=== PATIENT | male | born 1960 | race Caucasian/White ===

== ENCOUNTER → 2020-03-17 08:47 | Outpatient (CLI) | payer OTHER, SELFPAY ==
--- NOTE | 2020-03-17 | DI.CT.S_ITS ---
PROCEDURE: CT ABDOMEN PELVIS WO/W CON INDICATIONS: Unspecified abdominal pain TECHNIQUE: After the administration of oral contrast, 5 mm thick sections acquired from the diaphragms to the iliac crests. After the administration of intravenous contrast, 5 mm thick sections acquired from the diaphragms to the symphysis. 5 mm thick coronal and sagittal reformats were acquired. For radiation dose reduction, the following was used: automated exposure control, adjustment of mA and/or kV according to patient size. COMPARISON: None. FINDINGS: Image quality: Excellent. ABDOMEN: Lung bases: Lung bases are clear. Heart size is normal. Solid organs: Liver is normal in size and enhancement. Gallbladder negative. Biliary system is non-dilated. A cystic lesion involving the tail of pancreas measuring 1.8 x 1.7 cm, possibly slight multiloculated appearance. No definite pancreatic ductal dilatation. Spleen is normal in size and enhancement. No adrenal nodules. Both kidneys are normal in size. No hydronephrosis or nephrolithiasis. Presumed subcentimeter right-sided renal cyst although too small to characterize accurately Bowel and peritoneum: Stomach, small and large bowel loops are normal in caliber and wall thickness. No free fluid or air. There is mobile cecum which is seen in the right upper quadrant without pathologic dilatation. Appendix is not clearly identified however no suspicious pericecal inflammatory changes are seen. Nodes and vessels: No retroperitoneal or mesenteric adenopathy by size criteria. Aorta and inferior vena are normal in caliber. Miscellaneous: No ventral hernias. PELVIS: Genitourinary: The bladder is partially collapsed although there is possible circumferential wall thickening. Miscellaneous: No inguinal hernias or adenopathy. Bones: No suspicious bony lesions. Severe bilateral hip joint degeneration. Multilevel spondylitic changes and facet arthropathy No vertebral body compression fractures. IMPRESSION: Overall, no definite acute abnormality seen Incidentally noted cystic lesion involving the tail of the pancreas. In the absence of any prior studies cannot exclude cystic neoplasm. Recommend further evaluation with dedicated pancreas protocol MRI to better delineate the relationship with the main pancreatic duct. Additional chronic and incidental findings as above. Dictated by: Fritz Marquez M.D. on 03/17/2020 at 10:31 Approved by: Fritz Marquez M.D. on 03/17/2020 at 10:50
== END ==
PROVIDERS: PCP Family Medicine; Referring Provider Family Medicine; Visit Provider Family Medicine
DX: R10.9 Unspecified abdominal pain (principal); K86.9 Disease of pancreas, unspecified; M16.0 Bilateral primary osteoarthritis of hip; M47.816 Spondylosis without myelopathy or radiculopathy, lumbar region
CPT/HCPCS: 74178; Q9967

== ENCOUNTER → 2020-04-09 08:54 | Outpatient (CLI) | payer OTHER, SELFPAY ==
--- NOTE | 2020-04-09 | DI.MRI.S_ITS ---
PROCEDURE: MR ABDOMEN WO/W CON INDICATIONS: Cyst of pancreas TECHNIQUE: Coronal HASTE, axial 2D FLASH in- and [id number]; axial breath-hold T2 FSE with fat saturation from the hepatic dome to the iliac crests. Oblique coronal thin-slice and radial thick slab HASTE through the biliary system. Dynamic axial VIBE during administration of contrast. Post-contrast coronal VIBE or 2D FLASH with fat saturation from the hepatic dome to the iliac crests. Optional diffusion weighted imaging and ADC may be performed. COMPARISON: [facility], CT, CT ABDOMEN PELVIS WO/W CON, 03/17/2020, 9:08. FINDINGS: Image quality: Excellent. Pancreas and biliary system: No biliary distention or pancreatic ductal distention is seen. Note is made of a simple appearing cyst showing no abnormal internal or marginal enhancement measuring up to 1.9 x 1.3 cm at the pancreatic tail, unchanged from CT scanning that initially identified this structure 03/17/20. Solid organs: Liver is normal in size and enhancement. Gallbladder appears normal. Spleen is normal in size and enhancement. No adrenal nodules. Kidneys are normal in size and enhancement, without hydronephrosis. Nodes and vessels: No retroperitoneal or mesenteric adenopathy by size criteria. Aorta and inferior vena cava are normal in size. Bowel and peritoneum: Unenhanced bowel loops are normal in caliber throughout. No free fluid. Lung bases: No basal pleural effusions. Heart size is normal. Bones and soft tissues: No ventral hernias. Bone marrow is normal in overall signal. IMPRESSION: Isolated finding of a simple appearing cyst at the pancreatic tail measuring up to 1.3 x 1.9 cm, not clearly communicating with or enlarging the pancreatic duct. This structure may be visible utilizing ultrasound scanning, and if so followup by sequential ultrasound could be performed. It remains possible that this represents a small side branch intraductal papillary mucinous neoplasm and for this reason followup is necessary. It would be helpful if a prior cross-sectional imaging study exists that included this area for reference. If so, please obtain for our review. Dictated by: David Reynolds M.D. on 04/09/2020 at 11:36 Approved by: David Reynolds M.D. on 04/09/2020 at 12:02
== END ==
PROVIDERS: PCP Family Medicine; Referring Provider Family Medicine; Visit Provider Family Medicine
DX: K86.2 Cyst of pancreas (principal)
CPT/HCPCS: 74183; A9579

== ENCOUNTER 2020-08-03 15:02 | Emergency (ER) | payer OTHER, SELFPAY ==
[2020-08-03 15:07] VITALS: BP 160/93; PULSE 66; RESP 16; TEMP 37.1; O2SAT 99
[2020-08-03] MEDS: TET,DIPH,PERTUSS(ACELL),VAC/PF 0.5 ML SYRINGE IM (15:28)
--- NOTE | 2020-08-03 15:36 | ED_ITS ---
HPI - Animal Bite <GRISELDA Haines - Last Filed: 08/03/20 20:55> General Chief Complaint: Animal Bite Stated Complaint: EXPOSED TO A BAT Time Seen by Provider: 08/03/20 15:09 Source: patient Mode of arrival: Ambulatory History of Present Illness HPI narrative: 60yo male presents emergency department after an exposure to a bat approximately 48 hours ago. Patient states a bat fell from an umbrella, hit his right shoulder and briefly clung to his right arm for a few seconds. He brushed about of his arm and the back fell to the ground. Patient states ?the back was acting weird, it said on the back for few minutes with his mouth open and had difficulty flying off. Patient denies any known bite, breaks in the skin, or sustained scratches. He denies any symptoms such as fevers, chills, nausea, vomiting, diarrhea, chest pain, shortness of breath, or any other concerns. Unknown last Tdap. Related Data Home Medications Medication Instructions Recorded Confirmed amlodipine-benazepril 1 cap PO QAM 08/03/20 08/03/20 Previous Rx's Medication Instructions Recorded rabies vaccine, pcec (PF) 2.5 unit IM .Once #1 unit 08/03/20 [RabAvert (PF)] rabies vaccine, pcec (PF) 2.5 unit IM .once #1 unit 08/03/20 [RabAvert (PF)] rabies vaccine, pcec (PF) 2.5 unit IM .once #1 units 08/03/20 [RabAvert (PF)] Allergies Allergy/AdvReac Type Severity Reaction Status Date / Time No Known Drug Allergies Allergy Verified 08/03/20 16:15 Review of Systems <GRISELDA Haines - Last Filed: 08/03/20 20:55> Review of Systems Narrative: REVIEW OF SYSTEMS: GENERAL: Denies fever or chills. HENT: Denies head trauma. CARDIOVASCULAR: Denies syncope. MUSCULOSKELETAL: Denies weakness, or deformities. INTEGUMENTARY: Complains bat exposure, see HPI. NEURO: Denies numbness or tingling. Patient History <GRISELDA Haines - Last Filed: 08/03/20 20:55> Medical History No significant medical problems (Inactive) alcohol intake frequency: 0-2 drinks per day Exam <GRISELDA Haines - Last Filed: 08/03/20 20:55> Initial Vital Signs Initial Vital Signs: Vital Signs Temperature 98.7 F 08/03/20 15:07 Pulse Rate 66 08/03/20 15:07 Respiratory Rate 16 08/03/20 15:07 Blood Pressure 160/93 H 08/03/20 15:07 Pulse Oximetry 99 08/03/20 15:07 PHYSICAL EXAMINATION: GENERAL: Well groomed, alert, and cooperative. Answers questions promptly and appropriately. Vital signs noted. HENT: Normocephalic, atraumatic. RESPIRATORY: Normal respiratory rate, trachea midline, airway patent. No stridor, nasal flaring or accessory muscle use. MUSCULOSKELETAL: Normal gait and coordination. Equal tone and mass bilaterally. EXTREMITIES: CMS intact. Moves all extremities. SKIN: Warm, dry, soft, appropriate color for ethnicity. No scratches or lesions to right forearm. NEURO: Alert and Oriented X 3. Good coordination. PSYCH: Appropriate affect and mood. <Karrie Orourke DO - Last Filed: 08/12/20 07:56> Initial Vital Signs Initial Vital Signs: Vital Signs Temperature 98.7 F 08/03/20 15:07 Pulse Rate 66 08/03/20 15:07 Respiratory Rate 16 08/03/20 15:07 Blood Pressure 160/93 H 08/03/20 15:07 Pulse Oximetry 99 08/03/20 15:07 Course <GRISELDA Haines - Last Filed: 08/03/20 20:55> Course Course Narrative: 1530: Discussed with patient rabies protocol, states he would like rabies vaccination and Tdap. Patient is concerned he will have to travel to the ED for reviewed vaccination. Patient was encouraged to check with clinic on [address] to inquire if they could get the following rabies vaccinations in the clinic. Orders Ordered: Discontinued Medications Diphtheria/Tetanus/Acell Pertussis (Adacel) 0.5 ml IM .ONCE ONE Stop: 08/03/20 15:24 Last Admin: 08/03/20 15:28 Dose: 0.5 ml Documented by: MOMO Rabies Immune Globulin (Hyperrab) 1,588 unit 20 unit/kg (1588 unit) IM NOW ONE Stop: 08/03/20 15:37 Last Admin: 08/03/20 16:02 Dose: 1,588 unit Documented by: JOAQUIN Rabies Vaccine (Rabavert) 2.5 units IM .ONCE ONE Stop: 08/03/20 15:37 Last Admin: 08/03/20 15:56 Dose: 2.5 units Documented by: JOAQUIN Vital Signs Vital signs: Vital Signs - 8 hr 08/03/20 15:07 08/03/20 16:30 Temperature 98.7 F Pulse Rate 66 80 Respiratory Rate 16 14 Blood Pressure 160/93 H 148/79 H Pulse Oximetry 99 <Karrie Orourke DO - Last Filed: 08/12/20 07:56> Orders Ordered: Discontinued Medications Diphtheria/Tetanus/Acell Pertussis (Adacel) 0.5 ml IM .ONCE ONE Stop: 08/03/20 15:24 Last Admin: 08/03/20 15:28 Dose: 0.5 ml Documented by: MOMO Rabies Immune Globulin (Hyperrab) 1,588 unit 20 unit/kg (1588 unit) IM NOW ONE Stop: 08/03/20 15:37 Last Admin: 08/03/20 16:02 Dose: 1,588 unit Documented by: JOAQUIN Rabies Vaccine (Rabavert) 2.5 units IM .ONCE ONE Stop: 08/03/20 15:37 Last Admin: 08/03/20 15:56 Dose: 2.5 units Documented by: JOAQUIN Vital Signs Vital signs: Vital Signs - 8 hr 08/03/20 15:07 08/03/20 16:30 Temperature 98.7 F Pulse Rate 66 80 Respiratory Rate 16 14 Blood Pressure 160/93 H 148/79 H Pulse Oximetry 99 [facility] - Animal Bite <CindyGRISELDA Lechuga - Last Filed: 08/03/20 20:55> Medical Records Attestation: I reviewed the patient's medical records. Lab Data Attestation: I reviewed the patient's lab results. [facility] Narrative Medical decision making narrative: History and examination reveal a bed exposure with skin contact to an bat that was behaving abnormally, no physical evidence of trauma, denies any bites. However, Tdap was updated, rabies immunoglobulin and immunization were administered per patient request and recommendation of CDC. No concerns for infection to arm as no in cuts were visualized. Patient was given prescriptions for rabies vaccinations as he plans to receive these at Monday. Return precautions given for new or worsening symptoms. Patient agreed to plan of care and verbalized understanding. Discharge Plan Departure Patient Disposition: Home Clinical Impression: Exposure to bat without known bite Discharge Date/Time: 08/03/20 16:53 Instructions: DI for Rabies Vaccine Activity Restrictions/Additional Instructions: Thank you for entrusting me with your care today. As discussed, you have received a Tdap, rabies immunoglobulin, and rabies vaccine. Today's consider Day 0 of the vaccination schedule. You will need a repeat rabies vaccination on days 3 (Aug 06), 7 (Aug 10), and 14 (). I have given you prescriptions for the rabies vaccination see can take to Monday. Please confirm that they have this medication available. Return emergency department for any new or worsening symptoms. Prescriptions: New RabAvert (PF) 2.5 unit suspension for reconstitution 2.5 unit IM .once Qty: 1 RF: 0 RabAvert (PF) 2.5 unit suspension for reconstitution 2.5 unit IM .Once Qty: 1 RF: 0 RabAvert (PF) 2.5 unit suspension for reconstitution 2.5 unit IM .once Qty: 1 RF: 0 No Action amlodipine-benazepril 10-40 mg capsule 1 cap PO QAM RF: 0 Referrals: Harmeet Alcocer [Primary Care Provider] - <Karrie Orourke DO - Last Filed: 08/12/20 07:56> Cosign ED Attending Maricruzature Attestation: I was immediately available in the depa rtment for consultation. Documentation has been reviewed. I agree with assessment and plan.
[2020-08-03] MEDS: RABIES VACCINE (RABAVERT) 2.5 UNITS SYRINGE IM (15:56)
[2020-08-03] MEDS: RABIES IMMUNE GLOBULIN 300 UNIT/ML 5 ML VIAL 1588 UNIT IM (16:02)
[2020-08-03 16:30] VITALS: BP 148/79; PULSE 80; RESP 14
== END 2020-08-03 16:53 | disposition home or self-care (01) ==
PROVIDERS: Emergency Provider Nurse Practitioner; PCP Family Medicine
DX: Z20.9 Contact with and (suspected) exposure to unspecified communicable disease (principal); Z23 Encounter for immunization
CPT/HCPCS: 90375; 90471; 90675; 96372; 99283; 90715

== ENCOUNTER → 2020-12-31 09:07 | Outpatient (CLI) | payer OTHER, SELFPAY ==
--- NOTE | 2020-12-31 09:13 | DI.MRI.S_ITS ---
PROCEDURE: MR ABDOMEN WO/W CON INDICATIONS: Cyst of pancreas TECHNIQUE: Coronal HASTE, axial 2D FLASH in- and [id number]; axial breath-hold T2 FSE with fat saturation from the hepatic dome to the iliac crests. Oblique coronal thin-slice and radial thick slab HASTE through the biliary system. Dynamic axial VIBE during administration of contrast. Post-contrast coronal VIBE or 2D FLASH with fat saturation from the hepatic dome to the iliac crests. Optional diffusion weighted imaging and ADC may be performed. COMPARISON: [facility], MR, MR ABDOMEN WO/W CON, 04/09/2020, 9:13. FINDINGS: Image quality: Excellent. Pancreas and biliary system: The pancreas morphology is unchanged, and the cyst at the tail of the pancreas is also unchanged in size and morphology. This structure was initially identified on CT scanning 03/17/20 and the current dimensions of this cyst are 1.9 x 1.3 cm, with no internal septation or solid/enhancing nodularity. Solid organs: Liver is normal in size and enhancement. Gallbladder appears normal Spleen is normal in size and enhancement. No adrenal nodules. Kidneys are normal in size and enhancement, without hydronephrosis. Nodes and vessels: No retroperitoneal or mesenteric adenopathy by size criteria. Aorta and inferior vena cava are normal in size. Bowel and peritoneum: Unenhanced bowel loops are normal in caliber throughout. No free fluid. Lung bases: No basal pleural effusions. Heart size is normal. Bones and soft tissues: No ventral hernias. Bone marrow is normal in overall signal. IMPRESSION: Stable cystic structure at the pancreatic tail contiguous with the margin of the pancreatic duct, which is not dilated. This may represent a side branch papillary mucinous neoplasm, and in general a 10 year follow-up is recommended for such structures, which having established stability over time could be followed by MR scanning at 2 year intervals to complete 10 year surveillance from February of 2020. Dictated by: David Reynolds M.D. on 12/31/2020 at 13:59 Approved by: David Reynolds M.D. on 12/31/2020 at 14:07
== END ==
PROVIDERS: PCP Family Medicine; Referring Provider Family Medicine; Visit Provider Family Medicine
DX: K86.2 Cyst of pancreas (principal)
CPT/HCPCS: 74183

== ENCOUNTER → 2021-08-23 08:29 | Outpatient (CLI) | payer OTHER, SELFPAY ==
[2021-08-24 19:32] LABS: Cholesterol 209 mg/dL (140-199); HDL Cholesterol 64 mg/dL (40-60); LDL Cholesterol Calculated 129 mg/dL (<100); Triglycerides 81 mg/dL (35-150)
[2021-08-24 19:52] LABS: Add Manual Diff / Slide Review NO; Basophils Absolute Auto 0 /uL (0-100); Basophils Percent Auto 0.4 % (0-2); Eosinophils Absolute Auto 100 /uL (0-450); Eosinophils Percent Auto 3.2 % (2-4); Hematocrit 42.3 % (41-53); Lymphocytes Absolute Auto 1000 /uL (1100-4500); Lymphocytes Percent Auto 23.9 % (25-40); Mean Corpuscular HGB Conc 33.2 % (30-36); Mean Corpuscular Hemoglobin 31.1 PG (26-34); Mean Corpuscular Volume 93.8 fL (80-100); Monocytes Absolute Auto 400 /uL (0-900); Monocytes Percent Auto 9.4 % (3-14); Neutrophils Absolute Auto 2800 /uL (1500-7000); Neutrophils Percent Auto 63.1 % (50-75); Platelet Count 226 X10^3/uL (150-400); Red Blood Cell Count 4.51 X10^6/uL (4.5-5.9); White Blood Cell Count 4.4 X10^3/uL (4.5-11.0)
[2021-08-24 19:56] LABS: Hemoglobin A1C% w Est Avg Glu 5.2 % (4.0-6.0)
== END ==
PROVIDERS: PCP Family Medicine; Visit Provider Family Medicine
DX: D64.9 Anemia, unspecified (principal); E78.5 Hyperlipidemia, unspecified; I10 Essential (primary) hypertension
CPT/HCPCS: 80061; 83036; 85025

== ENCOUNTER → 2022-09-20 13:25 | Outpatient (CLI) | payer OTHER, SELFPAY ==
[2022-09-20 18:57] LABS: Add Manual Diff / Slide Review NO; Basophils Absolute Auto 0 /uL (0-100); Basophils Percent Auto 0.7 % (0-2); Eosinophils Absolute Auto 100 /uL (0-450); Eosinophils Percent Auto 1.4 % (2-4); Hematocrit 39.6 % (41-53); Hemoglobin 13.9 g/dL (13.5-17.5); Lymphocytes Absolute Auto 900 /uL (1100-4500); Lymphocytes Percent Auto 16.2 % (25-40); Mean Corpuscular HGB Conc 35.1 % (30-36); Mean Corpuscular Hemoglobin 31.5 PG (26-34); Mean Corpuscular Volume 89.6 fL (80-100); Monocytes Absolute Auto 500 /uL (0-900); Monocytes Percent Auto 8.5 % (3-14); Neutrophils Absolute Auto 4200 /uL (1500-7000); Neutrophils Percent Auto 73.2 % (50-75); Platelet Count 218 X10^3/uL (150-400); Red Blood Cell Count 4.42 X10^6/uL (4.5-5.9); Red Cell Distribution Width 12.4 % (11.6-14.8); White Blood Cell Count 5.7 X10^3/uL (4.5-11.0)
[2022-09-20 18:59] LABS: Alanine Aminotransferase 23 IU/L (<50); Albumin 4.3 g/dL (3.5-5.0); Albumin Globulin Ratio 1.6 (1.0-2.8); Alkaline Phosphatase 75 U/L (38-126); Aspartate Aminotransferase 26 IU/L (17-59); BUN Creatinine Ratio 14.5 (6-22); Bilirubin Total 0.4 mg/dL (0.2-1.3); Blood Urea Nitrogen 10 mg/dL (9-20); Carbon Dioxide 28 mmol/L (22-32); Chloride 98 mmol/L (98-107); Estimated Glomerular Filt Rate > 60 mL/min (>60); Globulin 2.7 g/dL (1.7-4.1); Glucose 94 mg/dL (80-110); HEMOLYSIS < 15 (0-50); Potassium 4.2 mmol/L (3.4-5.1); Sodium 134 mmol/L (137-145)
== END ==
PROVIDERS: PCP Physician Assistant; Visit Provider Physician Assistant
DX: Z12.5 Encounter for screening for malignant neoplasm of prostate (principal); I10 Essential (primary) hypertension; K86.2 Cyst of pancreas
CPT/HCPCS: 80053; 85025; G0103

== ENCOUNTER → 2022-11-08 12:59 | Outpatient (CLI) | payer OTHER, SELFPAY ==
[2022-11-08 20:20] LABS: HEMOLYSIS < 15 (0-50); Iron 171 ug/dL (49-181)
[2022-11-08 20:22] LABS: BUN Creatinine Ratio 14.1 (6-22); Blood Urea Nitrogen 10 mg/dL (9-20); Calcium 8.9 mg/dL (8.4-10.2); Carbon Dioxide 31 mmol/L (22-32); Chloride 87 mmol/L (98-107); Estimated Glomerular Filt Rate > 60 mL/min (>60); Glucose 103 mg/dL (80-110); HEMOLYSIS < 15 (0-50); Potassium 4.1 mmol/L (3.4-5.1); Sodium 128 mmol/L (137-145)
[2022-11-08 20:31] LABS: Percent Iron Saturation 36 % (20-50); Total Iron Binding Capacity 470 ug/dL (261-462); Transferrin 326 mg/dL (206-381)
[2022-11-08 21:10] LABS: Vitamin B12 315 pg/mL (239-931)
== END ==
PROVIDERS: PCP Physician Assistant; Visit Provider Family Medicine
DX: D64.9 Anemia, unspecified (principal); E78.5 Hyperlipidemia, unspecified; E87.1 Hypo-osmolality and hyponatremia; I10 Essential (primary) hypertension
CPT/HCPCS: 80048; 82607; 83540; 83550

== ENCOUNTER → 2022-12-01 13:03 | Outpatient (CLI) | payer OTHER, SELFPAY ==
[2022-12-02 08:22] LABS: BUN Creatinine Ratio 14.1 (6-22); Blood Urea Nitrogen 10 mg/dL (9-20); Calcium 8.8 mg/dL (8.4-10.2); Carbon Dioxide 29 mmol/L (22-32); Chloride 99 mmol/L (98-107); Estimated Glomerular Filt Rate > 60 mL/min (>60); Glucose 87 mg/dL (80-110); HEMOLYSIS < 15 (0-50); Potassium 4.4 mmol/L (3.4-5.1); Sodium 135 mmol/L (137-145)
[2022-12-02 09:59] LABS: Vitamin B12 507 pg/mL (239-931)
== END ==
PROVIDERS: PCP Family Medicine; Visit Provider Family Medicine
DX: D64.9 Anemia, unspecified (principal); E87.1 Hypo-osmolality and hyponatremia
CPT/HCPCS: 80048; 82607

== ENCOUNTER → 2023-01-08 09:13 | Outpatient (CLI) | payer OTHER, SELFPAY ==
--- NOTE | 2023-01-08 09:15 | DI.MRI.S_ITS ---
PROCEDURE: MR LUMBAR SPINE WO CON INDICATIONS: chronic LBP failed PT TECHNIQUE: Noncontrast sagittal T1 spin echo and T2 fast echo, sagittal STIR, and T2 fast spin echo through the lumbar spine. In cases with scoliosis, additional coronal T2 fast spin echo may be performed. COMPARISON: None. FINDINGS: Image quality: Excellent. Alignment and Curvature: There is normal bony alignment. Bone Marrow: Marrow is of normal overall signal. No acute vertebral body compression fractures. Spinal Cord: Conus medullaris terminates at the L2-L3 level. Visualized cord demonstrates normal signal and size. Paraspinous Soft Tissues: No paravertebral masses. T12-L1: Disc height loss. No canal stenosis or foraminal stenosis. L1-L2: Disc height loss. No canal stenosis or foraminal stenosis. L2-L3: Facet hypertrophy. No canal stenosis or foraminal stenosis. L3-L4: Disc bulge. Facet hypertrophy. Moderate canal stenosis. No significant foraminal stenosis. L4-L5: Disc bulge. Short pedicles. Prominent facet and ligament hypertrophy. Marked canal stenosis. Moderate to severe bilateral foraminal narrowing with a degree of bilateral foraminal L4 nerve root impingement. On the right, a facet joint cyst contributes to foraminal nerve root impingement. L5-S1: Short pedicles. Disc bulge. Facet hypertrophy. Moderate canal stenosis. Mild right foraminal narrowing and moderate left foraminal narrowing IMPRESSION: 1. Incidental note is made of the presence of a lower than normal conus termination. 2. Short pedicles. 3. Multilevel facet arthropathy. 4. Canal stenosis is moderate at L3-L4, marked at L4-L5, and moderate at L5-S1. 5. Multilevel foraminal narrowing as described above, including bilateral moderate to severe foraminal narrowing at L4-L5. Dictated by: Jhonny Tamayo M.D. on 01/09/2023 at 9:23 Approved by: Jhonny Tamayo M.D. on 01/09/2023 at 9:30
== END ==
PROVIDERS: PCP Family Medicine; Referring Provider Family Medicine; Visit Provider Family Medicine
DX: M47.816 Spondylosis without myelopathy or radiculopathy, lumbar region (principal); M48.061 Spinal stenosis, lumbar region without neurogenic claudication; M48.07 Spinal stenosis, lumbosacral region; M54.50 Low back pain, unspecified; G89.29 Other chronic pain
CPT/HCPCS: 72148